=== PATIENT | male | born 1955 | race Caucasian/White ===

== ENCOUNTER → 2017-11-16 | Outpatient (REF) | payer OTHER ==
[2017-11-16 10:58] LABS: BASO % 0.6 % (0.0-1.0); EOS # 0.1 10^3/uL (0.0-0.50); EOS % 0.9 % (0.0-3.0); HEMATOCRIT 43.5 % (42.0-52.0); HEMOGLOBIN 14.4 g/dl (13.5-17.5); IMMATURE GRANULOCYTE % 0.4 % (0-3.0); LYMPH # 2.1 10^3/uL (1.5-4.5); LYMPH % 30.5 % (24.0-44.0); MEAN CORPUSCULAR HEMOGLOBIN 30.2 pg (27.0-33.0); MEAN CORPUSCULAR HGB CONC 33.1 g/dl (32.0-36.5); MEAN CORPUSCULAR VOLUME 91.2 fl (80.0-96.0); MONO # 0.5 10^3/uL (0.0-0.8); MONO % 6.7 % (0.0-5.0); NEUTROPHILS # 4.3 10^3/uL (1.8-7.7); NEUTROPHILS % 60.9 % (36.0-66.0); PLATELET COUNT, AUTOMATED 173 10^3/uL (150-450); RED BLOOD COUNT 4.77 10^6/uL (4.30-6.10); RED CELL DISTRIBUTION WIDTH 14.3 % (11.5-14.5)
[2017-11-16 11:56] LABS: ALBUMIN 3.9 GM/DL (3.2-5.2); ALBUMIN/GLOBULIN RATIO 1.11 (1.00-1.93); ALKALINE PHOSPHATASE 47 U/L (45-117); ALT/SGPT 27 U/L (12-78); ANION GAP 5 MEQ/L (8-16); AST/SGOT 17 U/L (7-37); BILIRUBIN,TOTAL 0.4 MG/DL (0.2-1.0); BLOOD UREA NITROGEN 10 MG/DL (7-18); CALCIUM LEVEL 8.9 MG/DL (8.8-10.2); CARBON DIOXIDE LEVEL 31 MEQ/L (21-32); CHLORIDE LEVEL 107 MEQ/L (98-107); CREATININE FOR GFR 0.86 MG/DL (0.70-1.30); GLOMERULAR FILTRATION RATE > 60.0 (>49); GLUCOSE, FASTING 101 MG/DL (70-100); POTASSIUM SERUM 4.3 MEQ/L (3.5-5.1); RHEUMATOID FACTOR QUANT < 10.0 IU/ML (<15.0); SODIUM LEVEL 143 MEQ/L (136-145); TOTAL PROTEIN 7.4 GM/DL (6.4-8.2)
[2017-11-16 12:02] LABS: ERYTHROCYTE SEDIMENTATION RATE 8 mm/hr (0-20)
[2017-11-16 12:55] LABS: FOLATE > 24.0 NG/ML; VITAMIN B12 LEVEL 657 PG/ML
[2017-11-20 14:47] LABS: ALBUMIN 4.38 GM/DL (3.29-5.55); ALBUMIN % 59.2 % (55.8-66.1); ALPHA-1-GLOBULIN % 3.9 % (2.9-4.9); ALPHA-1-GLOBULINS 0.29 GM/DL (0.17-0.41); ALPHA-2-GLOBULINS 0.69 GM/DL (0.42-0.99); ALPHA-2-GLOBULINS % 9.3 % (7.1-11.8); BETA-1-GLOBULINS 0.41 GM/DL (0.28-0.60); BETA-1-GLOBULINS % 5.6 % (4.7-7.2); BETA-2-GLOBULINS % 5.4 % (3.2-6.5); GAMMA GLOBULIN % 16.6 % (11.1-18.8); GAMMA GLOBULINS 1.23 GM/DL (0.65-1.58)
[2017-11-21 11:12] LABS: DRVV SCREEN 47.7 SEC
[2017-11-21 11:13] LABS: PTT LUPUS TYPE ANTICOAG SCREEN 1.1 (0-1.2)
[2017-11-25 08:05] LABS: ANTINUCLEAR ANTIBODIES DIRECT Negative (Negative); CERULOPLASMIN 20.5 mg/dL (16.0-31.0); COPPER PLASMA 82 ug/dL (72-166); LEAD BLOOD ADULT 1 ug/dL (0-19); Lyme Disease IgG/IgM Antibodie <0.91 ISR (0.00-0.90); Lyme Disease IgM Ab Quantitati <0.80 index (0.00-0.79); MERCURY LEVEL 1.6 ug/L (0.0-14.9); VITAMIN B1 LEVEL WHOLE BLOOD 112.3 nmol/L (66.5-200.0); VITAMIN B6,PYRIDOXAL PHOSPHATE 52.9 ug/L (5.3-46.7); VITAMIN E(ALPHA TOCOPHEROL) 12.7 mg/L (9.0-29.0); VITAMIN E(GAMMA TOCOPHEROL) 0.9 mg/L (0.5-4.9)
== END ==
LOC: M LABNEURO 09:15
DX: G62.9 Polyneuropathy, unspecified (principal); R25.1 Tremor, unspecified
CPT/HCPCS: 82525

== ENCOUNTER → 2018-09-26 | Outpatient (REF) ==
--- NOTE | 2018-09-26 13:35 | REP ---
Clinical: shortness of breath. Comparison: none. Technique: PA and lateral. Findings: The mediastinum and cardiac silhouette are normal. The lung piper are clear and without acute consolidation, effusion, or pneumothorax. The skeletal structures are intact and normal. Impression: 1. No acute cardiopulmonary process. Electronically Signed by Trung Lang MD 09/26/2018 01:28 P
== END ==
LOC: M RAD 13:06
PROVIDERS: ATTEND Physician Assistant Medical
DX: R06.02 Shortness of breath (principal)

== ENCOUNTER → 2019-11-20 | Outpatient (CLI) | payer OTHER ==
[~2019-11-20] MED LIST: BACL10TA2 PO; BUDE180INH INH; BUSP10TA PO; CETI-36 PO; CLON0.5T17 PO; COMBAER6 INH; FAMO40TA3 PO; FLOM0.4C39 PO; LANTINJ4 SC; LISI2.5T2 PO; LYRI200C PO; MM S100C PO; MONT10TA4 PO; MULTCAP PO; NESI25TA PO; NOVOINJ3 SC; PANT40TA29 PO; ROSU40TA4 PO; SENO8.6T5 PO
== END ==
LOC: M LABSMTC 10:43
PROVIDERS: ATTEND Anesthesiology
DX: Z01.818 Encounter for other preprocedural examination (principal); Z11.59 Encounter for screening for other viral diseases
CPT/HCPCS: C9803; U0003

== ENCOUNTER 2019-11-25 07:57 | Day surgery (SDC) | payer OTHER ==
[~2019-11-25] VITALS: Ht 180.3 cm; Wt 104.3 kg
[~2019-11-25 07:57] MED LIST changes: +NS 1,000 ML IV ONE
[2019-11-25] MEDS ORDERED: propofoL 200 MG/20 ML VIAL As Ordered ONE (08:54)
[2019-11-25] MEDS ORDERED: LIDOCAINE 2% 100MG/5ML SDV (FOR ANES.) As Ordered ONE ×2 (08:54→10:23)
[2019-11-25] MEDS ORDERED: fentaNYL 100 MCG/2 ML INJECTION (J3010) As Ordered ONE (09:36)
[2019-11-25] MEDS ORDERED: LABETALOL 100MG/20ML VIAL As Ordered ONE (10:10)
--- NOTE | 2019-11-25 10:23 | ROOR ---
Patient Name: Justen Santos Procedure Date: 11/25/2019 10:05 AM Date of : 1955 Age: 64 Room: [facility] Gender: Male Note Status: Finalized Procedure: Upper Endoscopy + Biopsies Indications: Heartburn, Exclusion of Dawson's esophagus Providers: Dusty Romeo MD Referring MD: [facility], Admin. Requesting Provider: Medicines: Monitored Anesthesia Care Complications: No immediate complications. Procedure: Pre-Anesthesia Assessment: - The heart rate, respiratory rate, oxygen saturations, blood pressure, adequacy of pulmonary ventilation, and response to care were monitored throughout the procedure. The Endoscope was introduced through the mouth, and advanced to the second part of duodenum. The upper GI endoscopy was accomplished without difficulty. The patient tolerated the procedure well. Findings: The Z-line was irregular and was found 40 cm from the incisors. Multiple biopsies were obtained with cold forceps for evaluation to rule out Dawson's Esophagus randomly at the gastroesophageal junction. A small hiatal hernia was present. No other significant abnormalities were identified in a careful examination of the stomach. Diffuse mild inflammation characterized by congestion (edema), erythema and aphthous ulcerations was found in the duodenal bulb. The exam was otherwise without abnormality. Impression: - Z-line irregular, 40 cm from the incisors. - Small hiatal hernia. - Duodenitis. - The examination was otherwise normal. - Multiple biopsies were obtained at the gastroesophageal junction. - The examination was otherwise normal. Recommendation: - Patient has a contact number available for emergencies. The signs and symptoms of potential delayed complications were discussed with the patient. Return to normal activities tomorrow. Written discharge instructions were provided to the patient. - High fiber diet. - Discharge patient to home. - Follow an antireflux regimen. - Continue present medications. - Await pathology results. - Telephone GI clinic for pathology results in 1 week. - The findings and recommendations were discussed with the patient. Dusty Romeo MD Dusty Romeo MD 11/25/2019 10:23:14 AM Electronically signed by Dusty Romeo MD Number of Addenda: 0 Note Initiated On: 11/25/2019 10:05 AM Estimated Blood Loss: Estimated blood loss: none.
--- NOTE | 2019-11-25 10:45 | ROOR ---
Patient Name: Justen Santos Procedure Date: 11/25/2019 10:05 AM Date of : 1955 Age: 64 Room: [facility] Gender: Male Note Status: Finalized Procedure: Total Colonoscopy to Cecum Indications: Screening for colorectal malignant neoplasm Providers: Dusty Romeo MD Referring MD: Shirin HUSAIN [facility] Shirin HUSAIN [facility], Admin. Requesting Provider: Medicines: Monitored Anesthesia Care Complications: No immediate complications. Procedure: Pre-Anesthesia Assessment: - The heart rate, respiratory rate, oxygen saturations, blood pressure, adequacy of pulmonary ventilation, and response to care were monitored throughout the procedure. The Colonoscope was introduced through the anus and advanced to the cecum, identified by appendiceal orifice and ileocecal valve. The colonoscopy was performed without difficulty. The patient tolerated the procedure well. The quality of the bowel preparation was fair. Findings: The perianal and digital rectal examinations were normal. Non-bleeding internal hemorrhoids were found during retroflexion. The hemorrhoids were small and Grade I (internal hemorrhoids that do not prolapse). Scattered small-mouthed diverticula were found in the recto-sigmoid colon, sigmoid colon and descending colon. The exam was otherwise without abnormality on direct and retroflexion views. Impression: - Preparation of the colon was fair. - Non-bleeding internal hemorrhoids. - Diverticulosis in the recto-sigmoid colon, in the sigmoid colon and in the descending colon. - The examination was otherwise normal on direct and retroflexion views. - No specimens collected. - The exam was otherwise normal to the cecum. Recommendation: - Patient has a contact number available for emergencies. The signs and symptoms of potential delayed complications were discussed with the patient. Return to normal activities tomorrow. Written discharge instructions were provided to the patient. - High fiber diet. - Discharge patient to home. - Continue present medications. - Repeat colonoscopy in 10 years for screening purposes. - Return to referring physician. - The findings and recommendations were discussed with the patient. Dusty Romeo MD Dusty Romeo MD 11/25/2019 10:44:48 AM Electronically signed by Dusty Romeo MD Number of Addenda: 0 Note Initiated On: 11/25/2019 10:05 AM Estimated Blood Loss: Estimated blood loss: none.
[2019-11-25 11:10] VITALS: BP 147/63
== END 2019-11-25 11:21 | disposition home or self-care (01) ==
LOC: M OPP 07:57
PROVIDERS: ATTEND Internal Medicine Gastroenterology
DX: Z12.11 Encounter for screening for malignant neoplasm of colon (principal); K64.0 First degree hemorrhoids; K57.30 Diverticulosis of large intestine without perforation or abscess without bleeding; K22.8 Other specified diseases of esophagus; K44.9 Diaphragmatic hernia without obstruction or gangrene; K29.80 Duodenitis without bleeding; R12 Heartburn
CPT/HCPCS: 43239; 88305; G0121; J3010

== ENCOUNTER 2021-10-22 02:14 | Emergency (ER) | payer OTHER ==
[~2021-10-22] VITALS: Ht 180.3 cm; Wt 104.9 kg
[2021-10-22 02:14] VITALS: BP 156/81
[~2021-10-22 02:14] MED LIST changes: -LISI2.5T2 PO; +LISI2.5T9 PO; -MONT10TA4 PO; +MONT10TA97 PO; -NS 1,000 ML IV ONE
== END 2021-10-22 05:43 | disposition left against medical advice (07) ==
LOC: M ED 02:14
DX: Z53.21 Procedure and treatment not carried out due to patient leaving prior to being seen by health care provider (principal)

== ENCOUNTER 2024-03-29 09:37 | Emergency (ER) | payer OTHER ==
[~2024-03-29] VITALS: Ht 180.3 cm; Wt 103.3 kg
[~2024-03-29 09:37] MED LIST changes: +BUDE180A2 INH; -BUDE180INH INH; -ROSU40TA4 PO; +ROSU40TA81 PO
[2024-03-29 09:42] VITALS: BP 149/84; TEMP 98.6; O2SAT 97
== END 2024-03-29 12:11 | disposition home or self-care (01) ==
LOC: M ED 09:37
DX: S86.811A Strain of other muscle(s) and tendon(s) at lower leg level, right leg, initial encounter (principal); E11.9 Type 2 diabetes mellitus without complications; J44.9 Chronic obstructive pulmonary disease, unspecified; G24.9 Dystonia, unspecified; Z79.4 Long term (current) use of insulin; Z79.899 Other long term (current) drug therapy; Y92.9 Unspecified place or not applicable; Y93.89 Activity, other specified; Y99.9 Unspecified external cause status

== ENCOUNTER 2024-07-16 09:48 | Emergency (ER) | payer OTHER ==
[~2024-07-16] VITALS: Ht 180.3 cm; Wt 97.6 kg
[2024-07-16] MEDS: LIDOCAINE 5% (LIDODERM) PATCH TD ONE (14:05)
[2024-07-16] MEDS: diazePAM 5MG TABLET PO ONE (14:05)
[2024-07-16] MEDS: ACETAMINOPHEN 500 MG TAB PO ONE (14:06)
[2024-07-16] MEDS: KETOROLAC 30 MG/ML 1ML VIAL IM ONE (14:06)
[2024-07-16] MEDS ORDERED: METH-1165 PO (14:42)
[2024-07-16 14:50] VITALS: BP 101/61; TEMP 97.6; O2SAT 97
== END 2024-07-16 14:53 | disposition home or self-care (01) ==
LOC: M ED 09:48
DX: S39.012A Strain of muscle, fascia and tendon of lower back, initial encounter (principal); X50.0XXA Overexertion from strenuous movement or load, initial encounter; E11.9 Type 2 diabetes mellitus without complications; I10 Essential (primary) hypertension; J44.9 Chronic obstructive pulmonary disease, unspecified; N40.0 Benign prostatic hyperplasia without lower urinary tract symptoms; Y92.9 Unspecified place or not applicable; Y93.89 Activity, other specified; Y99.9 Unspecified external cause status; Z79.899 Other long term (current) drug therapy; Z79.4 Long term (current) use of insulin
CPT/HCPCS: 96372; 99283; J1885